=== PATIENT | male | born 1975 | race Two or more races ===

== ENCOUNTER 2016-12-11 15:16 | Emergency (ER) | payer SELFPAY ==
[~2016-12-11] VITALS: Ht 162.6 cm; Wt 81.5 kg
[2016-12-11] MEDS ORDERED: METOCLOPRAMIDE HCL 10MG/2ML VIAL IV ONE (18:30)
[2016-12-11] MEDS ORDERED: SODIUM CHLORIDE 0.9% 1,000 ML IV ONE (18:30)
[2016-12-11] MEDS ORDERED: KETOROLAC 30MG/ML VIAL IV ONE (18:30)
[2016-12-11 21:30] VITALS: BP 118/75
== END 2016-12-11 22:00 | disposition home or self-care (01) ==
LOC: ER 15:16
DX: R51 Headache (principal)
CPT/HCPCS: 70450; 96374; 96375; 99284; J1885; J2765; Z7610; J7030

== ENCOUNTER 2017-11-15 10:18 | Emergency (ER) | payer SELFPAY ==
[~2017-11-15] VITALS: Ht 167.6 cm; Wt 82.0 kg
[2017-11-15] MEDS ORDERED: DIPHENHYDRAMINE 50MG/ML VIAL IV ONE (11:00)
[2017-11-15] MEDS ORDERED: PROCHLORPERAZINE 10MG/2ML VIAL IV ONE (11:00)
[2017-11-15 12:37] VITALS: BP 127/77
== END 2017-11-15 12:38 | disposition home or self-care (01) ==
LOC: ER 10:29
DX: R51 Headache (principal); R42 Dizziness and giddiness; H53.8 Other visual disturbances
CPT/HCPCS: 70450; 96374; 96375; 99284; J0780; J1200; Z7610

== ENCOUNTER 2017-12-14 14:57 | Emergency (ER) | payer SELFPAY ==
[~2017-12-14] VITALS: Ht 165.1 cm; Wt 75.0 kg
[2017-12-14 15:03] VITALS: BP 123/74
== END 2017-12-14 16:17 | disposition home or self-care (01) ==
LOC: ER 15:48
DX: Z76.0 Encounter for issue of repeat prescription (principal); R51 Headache
CPT/HCPCS: 99282

== ENCOUNTER 2018-01-24 14:09 | Emergency (ER) | payer SELFPAY ==
[~2018-01-24] VITALS: Ht 162.6 cm; Wt 91.4 kg
[2018-01-24] MEDS ORDERED: KETOROLAC 60MG/2ML VIAL IM STA (14:58)
[2018-01-24] MEDS ORDERED: METOCLOPRAMIDE HCL 10MG/2ML VIAL IM ONE (15:00)
[2018-01-24 16:07] LABS: BASOPHILS % 0.6 % (0.0-2.0); EOSINOPHILS % 1.3 % (0.0-5.0); HEMATOCRIT. 41.4 % (42.0-52.0); HEMOGLOBIN. 14.2 g/dL (14.0-18.0); LYMPHOCYTES % 29.2 % (20.0-50.0); MEAN CORPUSCULAR HEMOGLOBIN 27.3 pg (28.0-32.0); MEAN CORPUSCULAR VOLUME 79.7 fL (80.0-94.0); MONOCYTES % 7.2 % (2.0-8.0); NEUTROPHILS % 61.7 % (40.0-76.0); PLATELET 233 x1000/uL (130-400); RED CELL DISTRIBUTION WIDTH 14.2 % (11.6-14.6)
[2018-01-24 16:15] LABS: CHLORIDE 107 mEq/L (98-107)
[2018-01-24 16:17] VITALS: BP 129/82
== END 2018-01-24 17:00 | disposition home or self-care (01) ==
LOC: ER 14:09
DX: R51 Headache (principal)
CPT/HCPCS: 36415; 80053; 85025; 96372; 99284; J1885; J2765

== ENCOUNTER 2018-06-28 08:19 | Emergency (ER) | payer SELFPAY ==
[~2018-06-28] VITALS: Ht 152.4 cm; Wt 71.0 kg
[2018-06-28] MEDS ORDERED: IBUPROFEN 600MG TABLET PO ONE (09:00)
[2018-06-28 10:35] VITALS: BP 114/69
== END 2018-06-28 10:37 | disposition home or self-care (01) ==
LOC: ER 08:19
DX: M25.512 Pain in left shoulder (principal)
CPT/HCPCS: 73030; 99283

== ENCOUNTER 2018-11-27 14:55 | Emergency (ER) | payer SELFPAY ==
[~2018-11-27] VITALS: Ht 170.2 cm; Wt 82.0 kg
[2018-11-27 16:40] LABS: BASOPHILS % 0.7 % (0.0-2.0); EOSINOPHILS % 2.2 % (0.0-5.0); HEMATOCRIT. 39.4 % (42.0-52.0); HEMOGLOBIN. 13.3 g/dL (14.0-18.0); LYMPHOCYTES % 32.1 % (20.0-50.0); MEAN CORPUSCULAR VOLUME 79.8 fL (80.0-94.0); MEAN PLATELET VOLUME 7.8 fl (7.4-10.4); MONOCYTES % 7.4 % (2.0-8.0); NEUTROPHILS % 57.6 % (40.0-76.0); PLATELET 201 x1000/uL (130-400); RED BLOOD CELL COUNT 4.94 mill/uL (4.7-6.1)
[2018-11-27 16:46] LABS: CHLORIDE 108 mEq/L (98-107)
[2018-11-27 16:50] LABS: ETHANOL BLOOD < 10 mg/dL
[2018-11-27] MEDS ORDERED: SODIUM CHLORIDE 0.9% 1,000 ML IV ONE (17:21)
[2018-11-27] MEDS ORDERED: KETOROLAC 30MG/ML VIAL IV STA (17:21)
[2018-11-27 18:13] LABS: *AMPHETAMINES SCREEN URINE NEGATIVE (NEGATIVE)
[2018-11-27 18:14] LABS: *BARBITURATES SCREEN URINE NEGATIVE (NEGATIVE); *BENZODIAZEPINES SCREEN URINE NEGATIVE (NEGATIVE); *COCAINE SCREEN URINE NEGATIVE (NEGATIVE); CANNABINOID URINE SCREEN NEGATIVE (NEGATIVE); METHADONE URINE SCREEN NEGATIVE (NEGATIVE); OPIATES URINE SCREEN NEGATIVE (NEGATIVE); PHENCYCLIDINE URINE SCREEN NEGATIVE (NEGATIVE)
[2018-11-27 21:15] VITALS: BP 129/83
== END 2018-11-27 22:29 | disposition home or self-care (01) ==
LOC: ER 14:55
DX: R07.89 Other chest pain (principal)
CPT/HCPCS: 36415; 71045; 80053; 80305; 80320; 83880; 84484; 85025; 93005; 99284; J7030; G0480

== ENCOUNTER 2019-03-19 08:27 | Emergency (ER) | payer SELFPAY ==
[~2019-03-19] VITALS: Ht 162.6 cm; Wt 77.0 kg
[2019-03-19 08:37] VITALS: BP 140/88
[2019-03-19 11:20] LABS: CHLORIDE 108 mEq/L (98-107)
[2019-03-19] MEDS ORDERED: CALCIUM CARBONATE 1250MG TABLET (500MG ELEMENTAL CALCIUM) PO ONE (11:45)
== END 2019-03-19 12:21 | disposition home or self-care (01) ==
LOC: ER 08:27
DX: R20.2 Paresthesia of skin (principal)
CPT/HCPCS: 36415; 80053; 99283

== ENCOUNTER 2020-03-05 15:24 | Emergency (ER) | payer SELFPAY ==
[~2020-03-05] VITALS: Ht 172.7 cm; Wt 70.0 kg
[2020-03-05 17:25] VITALS: BP 120/78
== END 2020-03-05 17:26 | disposition home or self-care (01) ==
LOC: ER 15:24
DX: R05 Cough (principal); R09.81 Nasal congestion; Z11.59 Encounter for screening for other viral diseases
CPT/HCPCS: 71045; 99283

== ENCOUNTER 2020-06-22 09:49 | Emergency (ER) | payer SELFPAY ==
[~2020-06-22] VITALS: Ht 165.1 cm; Wt 80.0 kg
[2020-06-22] MEDS ORDERED: IBUP-2029 PO (10:18)
[2020-06-22] MEDS ORDERED: CIPR1DRO2 RIGHT EAR (10:18)
[2020-06-22 10:40] VITALS: BP 118/71
== END 2020-06-22 10:45 | disposition home or self-care (01) ==
LOC: ER 09:49
DX: H60.91 Unspecified otitis externa, right ear (principal)
CPT/HCPCS: 99283

== ENCOUNTER 2021-11-21 15:50 | Emergency (ER) | payer MEDICAID ==
[~2021-11-21] VITALS: Ht 162.6 cm; Wt 85.0 kg
[~2021-11-21 15:50] MED LIST: CIPR1DRO2 RIGHT EAR; IBUP-2029 PO
[2021-11-21 15:56] VITALS: BP 125/83
== END 2021-11-21 21:15 | disposition left against medical advice (07) ==
LOC: ER 15:50
DX: Z53.21 Procedure and treatment not carried out due to patient leaving prior to being seen by health care provider (principal)

== ENCOUNTER 2023-04-04 15:19 | Emergency (ER) | payer SELFPAY ==
[~2023-04-04] VITALS: Ht 167.6 cm; Wt 91.0 kg
[2023-04-04 15:25] VITALS: PULSE 81
[2023-04-04 15:26] VITALS: BP 139/85; RESP 16; TEMP 98.5; O2SAT 99
[2023-04-04 16:14] LABS: PROTHROMBIN TIME 10.7 sec (9.6-11.0)
[2023-04-04 16:24] LABS: BASOPHILS % 0.7 % (0.0-2.0); EOSINOPHILS % 1.6 % (0.0-5.0); HEMATOCRIT. 42.3 % (42.0-52.0); HEMOGLOBIN. 13.8 g/dL (14.0-18.0); LYMPHOCYTES % 30.6 % (20.0-50.0); MEAN CORPUSCULAR HEMOGLOBIN 27.2 pg (28.0-32.0); MEAN CORPUSCULAR HGB CONC 32.7 g/dL (31.0-37.0); MEAN CORPUSCULAR VOLUME 83.2 fL (80.0-94.0); MEAN PLATELET VOLUME 8.1 fl (7.4-10.4); MONOCYTES % 7.5 % (2.0-8.0); NEUTROPHILS % 59.6 % (40.0-76.0); PLATELET 276 x1000/uL (130-400); RED BLOOD CELL COUNT 5.09 mill/uL (4.7-6.1); WHITE BLOOD COUNT 7.3 x1000/uL (4.5-11.0)
[2023-04-04 16:30] LABS: ALANINE AMINOTRANSFERASE 59 IU/L (10-49); ALBUMIN 4.3 g/dL (3.2-4.8); ASPARTATE AMINOTRANSFERASE 51 IU/L (<34); BILIRUBIN TOTAL 0.5 mg/dL (0.1-1.0); CALCIUM 9.1 mg/dL (8.7-10.4); CARBON DIOXIDE 22 mEq/L (21-32); CHLORIDE 108 mEq/L (98-107); CREATININE 0.6 mg/dL (0.6-1.3); GLUCOSE 120 mg/dL (70-105); POTASSIUM 3.9 mEq/L (3.5-5.1); PROTEIN TOTAL 7.8 g/dL (6.0-8.3); SODIUM 138 mEq/L (136-145); UREA NITROGEN BLOOD 12 mg/dL (9-23)
[2023-04-04 16:35] LABS: TROPONIN I HIGH SENSITIVITY < 4 ng/L (3.0-53)
[2023-04-04] MEDS ORDERED: FAMOTIDINE 20MG TABLET PO ONE (19:00)
[2023-04-04] MEDS ORDERED: MAGNESIUM/ALUMINUM HYDROXIDE/SIMETHICONE 30ML UDC PO ONE (19:00)
[2023-04-04] MEDS ORDERED: FAMO-135 MT (21:44)
== END 2023-04-04 23:10 | disposition home or self-care (01) ==
LOC: ER 15:34
DX: K29.70 Gastritis, unspecified, without bleeding (principal); M25.512 Pain in left shoulder
CPT/HCPCS: 36415; 71045; 80053; 84484; 85025; 93005; 99285

== ENCOUNTER 2024-03-21 13:48 | Emergency (ER) | payer SELFPAY ==
[~2024-03-21] VITALS: Ht 160 cm; Wt 91.1 kg
[~2024-03-21 13:48] MED LIST changes: +FAMO-135 MT
[2024-03-21 14:01] VITALS: BP 133/82; PULSE 66; RESP 16; TEMP 97.9; O2SAT 97
[2024-03-21] MEDS ORDERED: IBUP-2029 MT (16:43)
== END 2024-03-21 18:36 | disposition home or self-care (01) ==
LOC: ER 13:48
DX: R51.9 Headache, unspecified (principal)
CPT/HCPCS: 99282